=== PATIENT | male | born 1975 | race African-American/Black ===

== ENCOUNTER 2022-04-17 13:09 | Emergency (ER) | payer OTHER ==
[~2022-04-17] VITALS: Ht 177.8 cm; Wt 86.4 kg
[~2022-04-17 13:09] MED LIST: AMIO200 PO; APIX5TAB PO; METHI5 PO; PROP40TA7 PO
[2022-04-17] MEDS ORDERED: RIVA10TA PO (13:44)
[2022-04-17 15:50] LABS: BASOPHILS % (AUTO) 0.1 % (0.0-2.0); EOSINOPHILS % (AUTO) 0 % (1.0-6.0); HEMATOCRIT 40.8 % (41-53); HEMOGLOBIN 13.1 g/dL (13.5-17.5); LYMPHOCYTES # (AUTO) 0.2 K/uL (1.0-4.8); LYMPHOCYTES % (AUTO) 3.6 % (22.0-44.0); MEAN CORPUSCULAR HEMOGLOBIN 21.9 pg (26.0-34.0); MEAN CORPUSCULAR HGB CONC 32.2 G/dL (31.0-37.0); MEAN CORPUSCULAR VOLUME 68 fL (80-100); MONOCYTES # (AUTO) 1.1 K/uL (0.1-1.0); MONOCYTES % (AUTO) 19.3 % (2.0-9.0); NEUTROPHILS # (AUTO) 4.6 K/uL (1.8-7.7); PLATELET COUNT (AUTO) 180 K/uL (150-450); RED BLOOD CELL COUNT(AUTO) 5.98 MIL/uL (4.50-5.90); RED CELL DISTRIBUTION WIDTH 14.6 % (11.5-14.5)
[2022-04-17 15:54] LABS: ANION GAP 11 mmol/L (8-16); CALCIUM, TOTAL 9.8 mg/dL (8.8-10.5); CARBON DIOXIDE 25 mmol/L (22-29); CHLORIDE 100 mmol/L (98-107); CREATININE 0.77 mg/dL (0.60-1.30); GLUCOSE,RANDOM 117 mg/dL (70-110); POTASSIUM 3.9 mmol/L (3.5-5.1); SODIUM SERUM 136 mmol/L (136-145); UREA NITROGEN, BLOOD 10 mg/dL (7-18)
[2022-04-17 15:55] LABS: GLOMERULAR FILTR. RATE CALC > 60 mL/min (>60)
[2022-04-17 16:02] LABS: ALANINE AMINOTRANSFERASE 69 U/L (12-78); ALBUMIN 3.6 g/dL (3.4-5.0); ALKALINE PHOSPHATASE 127 U/L (46-116); ASPARTATE AMINOTRANSFERASE 32 U/L (15-37); BILIRUBIN,TOTAL 0.6 mg/dL (0.1-1.0); TOTAL PROTEIN, SERUM 7.1 g/dL (6.4-8.2)
[2022-04-17 17:42] VITALS: BP 130/70
== END 2022-04-17 17:44 | disposition home or self-care (01) ==
LOC: EMS 13:09
DX: R11.0 Nausea (principal); I48.91 Unspecified atrial fibrillation; F12.90 Cannabis use, unspecified, uncomplicated; F17.210 Nicotine dependence, cigarettes, uncomplicated; Z79.899 Other long term (current) drug therapy
CPT/HCPCS: 80053; 84484; 85025; 93005; 99283; 99284

== ENCOUNTER 2025-02-16 11:06 | Emergency (ER) | payer OTHER ==
[~2025-02-16] VITALS: Ht 157.5 cm; Wt 100.0 kg
[~2025-02-16 11:06] MED LIST changes: -AMIO200 PO; -APIX5TAB PO; -METHI5 PO; +METHIMAZOLE5 MG PO; +RIVA10TA PO
[2025-02-16 11:17] VITALS: BP 127/93; PULSE 99; RESP 18; TEMP 98.2; O2SAT 99
[2025-02-16] MEDS ORDERED: IBUP-1554 PO (14:24)
[2025-02-16] MEDS ORDERED: HYDR-4062 PO (14:24)
[2025-02-16] MEDS ORDERED: PENI500T2 PO (14:24)
[2025-02-16] MEDS: HYDROCODONE/ACETAMINOPHEN 5-325 MG TABLET PO ONE (14:32)
[2025-02-16] MEDS: IBUPROFEN 600 MG TABLET PO ONE (14:33)
== END 2025-02-16 14:38 | disposition home or self-care (01) ==
LOC: EMS 11:06
DX: K04.7 Periapical abscess without sinus (principal); F12.90 Cannabis use, unspecified, uncomplicated; F17.210 Nicotine dependence, cigarettes, uncomplicated; Z86.39 Personal history of other endocrine, nutritional and metabolic disease; Z90.49 Acquired absence of other specified parts of digestive tract; Z79.899 Other long term (current) drug therapy; Z98.890 Other specified postprocedural states
CPT/HCPCS: 99283